=== PATIENT | female | born 1985 | race Caucasian/White ===

== ENCOUNTER 2019-07-22 17:49 | Emergency (ER) | payer SELFPAY ==
[2019-07-22 18:09] VITALS: BP 122/74; PULSE 81; RESP 17; TEMP 37.4; O2SAT 100
--- NOTE | 2019-07-22 18:20 | ED.GENADULT ---
HPI - General Adult General Chief complaint: Unspecified Stated complaint: RIGHT SIDED THROAT S WELLING Time Seen by Provider: 07/22/19 18:22 Source: RN notes reviewed History of Present Illness HPI narrative: Patient presents emergency department from home for right-sided throat pain. Patient states symptoms began approximately 3 days ago. The pain is located in the right side of the throat. Patient states the right side the neck is tender to touch and swollen as well as pain with swallowing she denies any fevers or chills ear pain rhinorrhea chest pain shortness of breath coughing or any other symptoms patient states she is taken no previous [id number] medication for pain no previous work-up Related Data Allergies Allergy/AdvReac Type Severity Reaction Status Date / Time No Known Allergies Allergy Unknown Verified 01/29/15 08:09 Review of Systems Review of Systems: Narrative: Gen.: Denies fevers or chills ENT: Denies congestion Respiratory: Denies shortness of breath or cough CV: Denies chest pain or palpitations GI: Denies abdominal pain nausea, emesis or diarrhea denies burning, urgency, frequency or hematuria Musculoskeletal: Denies back pain or muscle pain Neuro: Denies numbness, tingling, weakness or focal weakness Skin: Denies rash Except as documented, all other systems reviewed and negative [facility] Past Medical History Medical History (Updated 07/22/19 @ 18:29 by Miguel Vargas DO) Patient denies significant medical history Social History Social History (Updated 07/22/19 @ 18:24 by Miguel Vargas DO) Smoking packs per day: 0.5 Smoking cigarettes per day: 10.0 Gender identity (if verbalized by the patient): Female Exam Narrative: Exam Narrative: APPEARANCE: No acute distress, nontoxic, resting in bed EYES: EOMI HEENT: Normocephalic, atraumatic, TMs clear bilaterally nares patent, oral mucosa moist, uvula midline, erythema the posterior pharynx bilateral tonsils, tonsils 2+, no exudate no trismus tolerating own secretions voice normal Neck: Supple, no midline tenderness palpation no cervical lymphadenopathy RESPIRATORY: No respiratory distress Clear to auscultation bilaterally with no rhonchi wheezing or rales. CARDIOVASCULAR: Regular rate and rhythm without murmurs rubs or gallops. ABDOMINAL: Soft, nontender, nondistended, no rebound or guarding MUSCULOSKELETAl: Moves all extremities. No clubbing, cyanosis or edema. NEURO: Awake and alert. Following commands, speech normal, no focal deficits SKIN:: Warm, dry. No rashes lesions or abrasions PSYCHIATRIC: Normal affect/mood, Course Course Emergency Course: Discussed with patient results of workup and diagnosis. Discussed need for follow-up with primary care, proper use of medication, and reasons to return to the emergency department. Patient understands and agrees to current treatment plan Vital Signs Vital signs: Vital Signs Temperature 99.3 F 07/22/19 18:09 Pulse Rate 81 07/22/19 18:09 Respiratory Rate 17 07/22/19 18:09 Blood Pressure 122/74 07/22/19 18:09 Pulse Oximetry 100 07/22/19 18:09 Temperature 99.3 F 07/22/19 18:09 Pulse Rate 81 07/22/19 18:09 Respiratory Rate 17 07/22/19 18:09 Blood Pressure 122/74 07/22/19 18:09 Pulse Oximetry 100 07/22/19 18:09 Medical Decision Making Vital Signs Vital Signs: Vital Signs Temperature 99.3 F 07/22/19 18:09 Pulse Rate 81 07/22/19 18:09 Respiratory Rate 17 07/22/19 18:09 Blood Pressure 122/74 07/22/19 18:09 Pulse Oximetry 100 07/22/19 18:09 Temperature 99.3 F 07/22/19 18:09 Pulse Rate 81 07/22/19 18:09 Respiratory Rate 17 07/22/19 18:09 Blood Pressure 122/74 07/22/19 18:09 Pulse Oximetry 100 07/22/19 18:09 Discharge Plan Discharge Clinical Impression: Acute streptococcal pharyngitis Patient Disposition: Home, Self-Care Condition: Stable Instructions: Antibiotic Form, Strep Throat (ED) Add
[2019-07-22] MEDS: AMOXICILLIN 500 MG CAPSULE PO (18:47)
[2019-07-22] MEDS: IBUPROFEN 600 MG TABLET PO (18:47)
== END 2019-07-22 19:08 | disposition home or self-care (01) ==
LOC: ANHED 18:32
PROVIDERS: Emergency Provider Emergency Medicine
DX: J02.0 Streptococcal pharyngitis (principal); F17.210 Nicotine dependence, cigarettes, uncomplicated
CPT/HCPCS: 87880; 99283; A9270